=== PATIENT | female | born 1955 | race Caucasian/White ===

== ENCOUNTER 2022-06-13 06:59 | Emergency (ER) | payer MEDICARE, SELFPAY ==
[2022-06-13 07:05] VITALS: BP 132/92; PULSE 103; RESP 18; TEMP 36.2; O2SAT 99
--- NOTE | 2022-06-13 09:03 | ED.EYEPROB ---
HPI - Eye Problem General Chief complaint: Eye Problems Stated complaint: right eye pain started this morning Time Seen by Provider: 06/13/22 08:14 Source: patient Mode of arrival: ambulatory Limitations: no limitations History of Present Illness HPI Narrative: Patient is a 67 y/o female who presents to the ED with c/o R eye irritation. Patient reports she woke up around 4 AM this morning with a foreign body sensation in her right eye. She states it feels like a piece of glass is in her eye and scraping her eye each time she moves it. She denies any new make-ups, or exposure to any foreign bodies that she is aware of. She does not wear contacts or glasses. She notes that her eye has been red and has had increased tearing, but she denies purulent discharge, headache, vision changes, vision loss, fevers, nausea, vomiting, cough or cold symptoms. Patient notes history of severe anxiety, depression, agoraphobia. She states she has not left her house in 10 years. Related Data Allergies Allergy/AdvReac Type Severity Reaction Status Date / Time No Known Allergies Allergy Mild Verified 05/06/21 09:46 Review of Systems Review of Systems: CONSTITUTIONAL: Denies fever, chills, or sweats. EYES: See HPI. ENT: Denies rhinorrhea, congestion, sore throat. CARDIOVASCULAR: Denies chest pain. RESPIRATORY: Denies cough or dyspnea. GASTROINTESTINAL: Denies nausea, vomiting. NEUROLOGIC: Denies headache, numbness, or weakness. All systems reviewed & are unremarkable except as noted in HPI and below PMFSH Past Medical History Medical History (Updated 06/13/22 @ 11:27 by Merly Tejeda PA-C) Agoraphobia Depression Hypertension Surgical History Surgical History No pertinent past surgical history Family History Family History Mother Depression Hypertension Father Depression Hypertension Family history of alcoholism Family history of coronary artery disease Other Family history of cardiovascular disease Family history of malignant neoplasm Social History Social History Alcohol intake: current Exam Narrative: GENERAL: Well appearing, well-nourished, non-toxic, in no acute distress. HEAD: Normocephalic, atraumatic. EYES: PERRLA, EOMI, left conjunctiva clear. Diffuse right conjunctival injection. Watery discharge from R eye, scant amount of thicker slightly purulent material in corner of eye. No chemosis. No hyphema. No haziness of cornea. No periorbital swelling or swelling of eyelids. NECK: Supple. No adenopathy, no masses. RESPIRATORY: Airway patent, respirations nonlabored. CARDIOVASCULAR: Regular rate and rhythm without murmurs, rubs, or gallops. Radial pulses 2+ and equal bilaterally. MUSCULOSKELETAL: Moves all extremities. Strength/ROM intact without gross deformities. SKIN: Warm, dry, normal color. No rashes. NEURO: A&O X3. Speech clear. Cranial nerves II-XII grossly intact. Steady gait. No ataxic movements. PSYCHIATRIC: Anxious. Normal interaction. Course Vital Signs Vital signs: Vital Signs Temperature 97.2 F L 06/13/22 07:05 Pulse Rate 103 H 06/13/22 07:05 Respiratory Rate 18 06/13/22 07:05 Blood Pressure 132/92 H 06/13/22 07:05 Pulse Oximetry 99 06/13/22 07:05 Oxygen Delivery Room Air 06/13/22 07:05 Temperature 97.2 F L 06/13/22 07:05 Pulse Rate 103 H 06/13/22 07:05 Respiratory Rate 16 06/13/22 09:57 Blood Pressure 132/92 H 06/13/22 07:05 Pulse Oximetry 99 06/13/22 07:05 Oxygen Delivery Room Air 06/13/22 07:05 MDM - Eye Problem MDM Narrative Medical decision making narrative: Patient presented to ED with R eye irritation, FB sensation. Denies vision changes. VSS upon arrival. Patient mildly tachycardic, but very anxious on evaluation. Exam reassuring. Scant watery/purul
[2022-06-13 09:57] VITALS: RESP 16
== END 2022-06-13 09:58 | disposition home or self-care (01) ==
PROVIDERS: Emergency Provider Physician Assistant; PCP Family Medicine
DX: H10.31 Unspecified acute conjunctivitis, right eye (principal); I10 Essential (primary) hypertension; F40.00 Agoraphobia, unspecified
CPT/HCPCS: 99283; A9270